=== PATIENT | female | born 1945 | race Asian ===

== ENCOUNTER 2019-03-27 09:50 | Outpatient (CLI) | payer MEDICARE ==
--- NOTE | 2019-03-27 11:53 | XRay Report ---
SKELETAL SURVEY INDICATION / CLINICAL INFORMATION: ANEMIA/MONOCLONAL GAMMOPATHY. COMPARISON: None available. FINDINGS: SKULL: No lytic or blastic lesion. C-SPINE: No lytic or blastic lesion. Minimal lower cervical spondylosis. HUMERI: No lytic or blastic lesion. CHEST: No lytic or blastic lesion. T-SPINE: No lytic or blastic lesion. Mild to moderate mid to lower thoracic spondylosis. L-SPINE: No lytic or blastic lesion. Mild to moderate lumbar spondylosis. PELVIS: No lytic or blastic lesion. FEMORA: No lytic or blastic lesion. ADDITIONAL FINDINGS: Patient is subjectively osteopenic. IMPRESSION: 1. Negative skeletal survey. Signer Name: Mariia Lopez MD Signed: 03/27/2019 11:49 AM Workstation Name: [id number]
== END 2019-03-27 09:51 | disposition home or self-care (01) ==
LOC: SPVIMAG 09:50
PROVIDERS: ATTEND Internal Medicine Hematology & Oncology
DX: M47.816 Spondylosis without myelopathy or radiculopathy, lumbar region (principal); M47.814 Spondylosis without myelopathy or radiculopathy, thoracic region; M47.812 Spondylosis without myelopathy or radiculopathy, cervical region; M85.88 Other specified disorders of bone density and structure, other site; N18.9 Chronic kidney disease, unspecified; D47.2 Monoclonal gammopathy; D64.9 Anemia, unspecified; R68.89 Other general symptoms and signs
CPT/HCPCS: 77074